=== PATIENT | male | born 1990 | race Caucasian/White ===

== ENCOUNTER → 2022-06-25 | Outpatient (CLI) | payer MEDICAID, SELFPAY ==
[2022-06-25 17:43] LABS: Uric Acid 5.7 mg/dL (3.5-7.2)
[2022-06-26 09:43] LABS: PTHIN 14.4 pg/mL (18.4-80.1)
== END | disposition home or self-care (01) ==
LOC: POLAB3 14:06
PROVIDERS: Visit Provider Internal Medicine Nephrology
DX: N20.0 Calculus of kidney (principal)
CPT/HCPCS: 36415; 83970; 84550